=== PATIENT | female | born 1975 | race Caucasian/White ===

== ENCOUNTER → 2016-10-27 | Outpatient (CLI) | payer MEDICARE | LOC: EXRD 09:58 | DX: Z47.1 Aftercare following joint replacement surgery (principal); Z98.890 Other specified postprocedural states | CPT/HCPCS: 73522 ==

== ENCOUNTER → 2020-08-29 | Outpatient (CLI) | payer OTHER ==
[~2020-08-29] MED LIST: 5-HTP100 MG PO; FISH OIL 1,0001 EACH PO; IBUPROFEN800 MG PO; KEFLEX CAP 500500 MG PO; LIVER CLEANSE PO; MELATONIN5 M2 PO; NORCO 5-325 TA1 EACH PO; POVIDONE-IOD28.35 GM TOP; TRAZODONE HCL100 MG PO; TRAZODONE HCL50 MG PO; VALERIAN ROOT500 MG PO; VISTARIL25 MG PO; VITAMIN C 500500 MG PO; [UNRECOGNIZED DRUG - OTHER]; [UNRECOGNIZED DRUG - OTHER] PO
== END ==
LOC: EXRD 08:32
DX: M25.551 Pain in right hip (principal); M25.552 Pain in left hip; M16.11 Unilateral primary osteoarthritis, right hip
CPT/HCPCS: 73522

== ENCOUNTER → 2020-10-04 | Outpatient (CLI) | payer OTHER | LOC: MAMO 08:23 | DX: Z12.31 Encounter for screening mammogram for malignant neoplasm of breast (principal) | CPT/HCPCS: 77063; 77067 ==

== ENCOUNTER → 2022-01-27 | Outpatient (CLI) | payer OTHER | LOC: KOH-I 01-16 10:45 | DX: R79.89 Other specified abnormal findings of blood chemistry (principal); K76.0 Fatty (change of) liver, not elsewhere classified; K80.20 Calculus of gallbladder without cholecystitis without obstruction | CPT/HCPCS: 76700 ==